=== PATIENT | female | born 1965 | race Caucasian/White ===

== ENCOUNTER 2017-10-16 18:17 | Emergency (ER) | payer MEDICAID ==
[~2017-10-16] VITALS: Ht 172.7 cm; Wt 60.0 kg
[~2017-10-16 18:17] MED LIST: BUPR8SUB SL; FURO1TAB62 PO; LIPI40TA PO; MOBI15TA PO; MOTR200T4 PO; NEUR600T PO; ZANA4CAP PO; ZOLO100T PO
[2017-10-16 18:26] VITALS: BP 128/79; PULSE 84; RESP 18; TEMP 98.2; O2SAT 100
--- NOTE | 2017-10-16 21:23 | PD ---
HPI Chief Complaint: Back/ Neck Pain or Injury Time Seen by Provider: 21:08 Travel History International Travel<30 days: No Contact w/Intl Traveler<30days: No Traveled to known affect area: No History of Present Illness HPI 52yo F with PMH of chronic back pain presents to the ED with c/o lower back pain s/p slip and fall in shower yesterday. Pt has had lower back pain for years and also has left leg numbness for at least 5-7 months. Pt follows with [facility] in [place] and had a myelogram and said she is to have surgery there. Denies any new weakness or numbness, head trauma, LOC, chest pain, sob, n/v, abdominal pain, urinary or fecal incontinence. Pt said she was on percocet 10 but has not taken it in 2 months because she switched primary care. 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) Neurologic: No Psychiatric: Yes Respiratory: Yes (HX NODULE ON LEFT LUNG) Immunizations Current: Yes Myocardial Infarction: No Renal Failure: No Seizures: No Sleep Apnea: No Thyroid Disease: No Ulcer: No Tetanus Vaccination: < 5 Years Influenza Vaccination: No ?: Not Menopausal: Yes : 0 Past Surgical History Abdominal Surgery: No AICD: No Appendectomy: Yes Cardiac Surgery: No Ear Surgery: No Endocrine Surgery: No Eye Surgery: No Genitourinary Surgery: No Gynecologic Surgery: Yes Hysterectomy: Yes Insulin Pump: No Oral Surgery: No Pacemaker: No Thoracic Surgery: Yes Other Surgery: Yes Social History Alcohol Use: No Tobacco Use: No Substance Use: No Allergies-Medications (Allergen,Severity, Reaction): Coded Allergies: morphine (Unverified Allergy, Mild, ITCHING, 10/16/17) Reported Meds & Prescriptions Reported Meds & Active Scripts Active Reported Neurontin (Gabapentin) 600 Mg Tab 600 Mg PO TID Review of Systems Except as stated in HPI: all other systems reviewed are Neg Physical Exam Narrative GENERAL: 52yo F in mild distress. SKIN: Focused skin assessment warm/dry. HEAD: Atraumatic. Normocephalic. EYES: Pupils equal and round. No scleral icterus. No injection or drainage. ENT: No nasal bleeding or discharge. Mucous membranes pink and moist. NECK: Trachea midline. No JVD. CARDIOVASCULAR: Regular rate and rhythm. No murmur appreciated. RESPIRATORY: No accessory muscle use. Clear to auscultation. Breath sounds equal bilaterally. GASTROINTESTINAL: Abdomen soft, non-tender, nondistended. BACK: No erythema, step off or mass. +TTP L4-5. MUSCULOSKELETAL: No obvious deformities. No clubbing. No cyanosis. No edema. NEUROLOGICAL: Awake and alert. No obvious cranial nerve deficits. Motor grossly within normal limits in all extremities. Chronic numbness of left leg. Normal speech. PSYCHIATRIC: Appropriate mood and affect; insight and judgment normal. Data Data Last Documented VS Vital Signs Date Time Temp Pulse Resp B/P (MAP) Pulse Ox O2 Delivery O2 Flow Rate FiO2 10/16/17 18:26 98.2 84 18 128/79 (95) 100 Orders Orders Oxycodone-Acetamin 10-325 Mg (Percocet 1 (10/16/17 21:30) Ct Lumb Spine W/O Contrast (10/16/17 ) MDM Medical Decision Making Medical Screen Exam Complete: Yes Emergency Medical Condition: Yes Differential Diagnosis Acute on chronic back pain vs. sciatica vs. malingering Narrative Course 52yo F with chronic back pain and chronic left leg numbness here requesting pain medication for her back after falling in shower yesterday. Pt has no new weakness and has follow up with [facility] at [place] for her back problems. CT LS showed scoliotic curvature with diffuse degenerative changes of the lumbar spine. There is a right posterior lateral disc bulge that impinges the right L3 nerve root. Pt has no weakness or numbness in right leg. Denies any urinary complaints. Pt given percocet 10mg which is what she requested. Return precautions given. Diagnosis Primary Impression: Acute exacerbation of chronic low back pain Patient Instructions: General Instructions Departure Forms: Tests/Procedures Additional Instructions: Please follow up with your doctors at [facility] for your back pain. Return to the ED if symptoms worsen. Med/Other Pt SpecificInfo: Prescription(s) given Scripts Ibuprofen (Ibuprofen) 600 Mg Tab 600 MG PO Q8HR Y for PAIN, #20 TAB 0 Refills Prov: Isadora Willoughby DO 10/16/17 Disposition: 01 DISCHARGE HOME Condition: Stable Isadora Willoughby DO October 16, 2017 21:23
[2017-10-16] MEDS ORDERED: oxyCODONE/ACETAMINOPHEN 10 MG/325 MG TAB PO ONE (21:30)
--- NOTE | 2017-10-16 22:35 | RADRPT ---
EXAM DATE/TIME: 10/16/2017 22:07 [facility] COMPARISON: No previous studies available for comparison. INDICATIONS : Fall yesterday, lower back pain RADIATION DOSE: 20.73 CTDIvol (mGy) MEDICAL HISTORY : None SURGICAL HISTORY : Hysterectomy. Appendectomy.Lumbar surgery ENCOUNTER: Initial ACUITY: 2 days PAIN SCALE: 5/10 LOCATION: Lumbar spine TECHNIQUE: Volumetric scanning of the lumbar spine was performed. Multiplanar reconstructions in the sagittal, coronal and oblique axial planes were performed. Using automated exposure control and adjustment of the mA and/or kV according to patient size, radiation dose was kept as low as reasonably achievable t o obtain optimal diagnostic quality images. DICOM format image data is available electronically for review and comparison. FINDINGS: VERTEBRAE: Bilateral transpedicular posterior fixation at L4-L5. Intervening bone graft device noted. Vertebral body heights are maintained ALIGNMENT: Pronounced scoliotic curvature with concavity towards the patient's right centered at L1-L2. T12-L1: Disc space narrowing with vacuum disc phenomena. No bulge or protrusion. Lateral recesses, central ca nal, and neural foramen are patent. L1-L2: Disc space narrowing with vacuum disc phenomena. No bulge or protrusion. Lateral recesses, central ca nal, and neural foramen are patent. L2-L3: Disc space narrowing with vacuum disc phenomena. No bulge or protrusion. Lateral recesses, central ca nal, and neural foramen are patent. L3-L4: Disc space narrowing with vacuum disc phenomenon. Right posterior lateral disc bulge that impinges th e right L3 nerve root within the neural foramen. Central canal and left neural foramen are patent. L4-L5: Beam Muller artifact and orthopedic hardware. Central canal and neural foramina are grossly patent. L5-S1: A mild broad-based disc bulge. Vacuum disc phenomenon. Central canal and neural foramen remain patent . CONCLUSION: 1. Scoliotic curvature with diffuse degenerative changes of the lumbar spine. Note is made of right L 3 neural foraminal impingement do a right posterior lateral disc bulge. Georges Barragan Jr., MD on October 16, 2017 at 22:29 Board Certified Radiologist. This report was verified electronically.
[2017-10-16] MEDS ORDERED: IBUP-232 PO (23:08)
== END 2017-10-16 23:21 | disposition home or self-care (01) ==
LOC: NEPD 18:17
DX: M54.5 Low back pain (principal); G89.29 Other chronic pain
CPT/HCPCS: 72131; 99283